=== PATIENT | female | born 1980 | race Caucasian/White ===

== ENCOUNTER 2017-01-29 17:24 | Emergency (ER) | payer MEDICAID, OTHER ==
[~2017-01-29] VITALS: Wt 61.4 kg
[2017-01-29] MEDS ORDERED: ACETAMINOPHEN 325 MG TAB PO STA (19:08)
--- NOTE | 2017-01-29 19:08 | ERD ---
ER Documentation Chief Complaint Chief Complaint vag bleed, discharge, 11 wks preg HPI This 36-year-old, , 11 week female with pelvic pain and cramping, yellow watery d/c, and brown d/c once on TP. denies back pain or dysuria ROS All systems reviewed and are negative except as per history of present illness. PMhx/Soc Medical and Surgical Hx: pt denies Medical Hx, pt denies Surgical Hx Hx Alcohol Use: No Hx Substance Use: No Smoking Status: Never smoker Physical Exam Vitals Vital Signs Date Time Temp Pulse Resp B/P Pulse Ox O2 Delivery O2 Flow Rate FiO2 01/29/17 17:40 98.0 80 20 108/61 98 Vitals stable, triage notes reviewed Physical Exam Const: Well-nourished, well-appearing, well-hydrated 36-year-old female in no acute distress Head: Eyes: ENT: Neck: Resp: Rations even and unlabored, no respiratory distress Cardio: Abd: Soft, symmetric, no bladder tenderness, no CVA tenderness Skin: Back: No midline or flank tenderness Ext: No cyanosis, or edema Neur: Awake and alert Psych: Normal Mood and Affect Result Diagram: 01/29/171924 Results 24 hrs Laboratory Tests Test 01/29/17 19:25 White Blood Count 7.910^3/ul Red Blood Count 3.9310^6/ul Hemoglobin 12.3g/dl Hematocrit 35.6% Mean Corpuscular Volume 90.6fl Mean Corpuscular Hemoglobin 31.3pg Mean Corpuscular Hemoglobin Concent 34.6g/dl Red Cell Distribution Width 12.2% Platelet Count 74820^3/UL Mean Platelet Volume 9.1fl Neutrophils % 64.1% Lymphocytes % 27.4% Monocytes % 6.3% Eosinophils % 1.6% Basophils % 0.3% Nucleated Red Blood Cells % 0.0/100WBC Neutrophils # 5.110^3/ul Lymphocytes # 2.210^3/ul Monocytes # 0.510^3/ul Eosinophils # 0.110^3/ul Basophils # 0.010^3/ul Nucleated Red Blood Cells # 0.010^3/ul Urine Color YELLOW Urine Clarity CLEAR Urine pH 5.0 Urine Specific [place] 1.019 Urine Ketones NEGATIVEmg/dL Urine Nitrite NEGATIVEmg/dL Urine Bilirubin NEGATIVEmg/dL Urine Urobilinogen NEGATIVEmg/dL Urine Leukocyte Esterase NEGATIVELeu/ul Urine Microscopic RBC 6/HPF Urine Microscopic WBC 3/HPF Urine Squamous Epithelial Cells FEW/HPF Urine Calcium Oxalate Crystals FEW/HPF Urine Bacteria FEW/HPF Urine Hemoglobin 2+mg/dL Urine Glucose NEGATIVEmg/dL Urine Total Protein NEGATIVEmg/dl Beta HCG, Quantitative 4501.3mIU/ml Current Medications Medications (Trade) Dose Ordered Sig/Juan Antonio Route PRN Reason Start Time Stop Time Status Last Admin Dose Admin Acetaminophen (Tylenol Tab) 650 mg ONCE STAT PO 01/29/17 19:08 01/29/17 19:11 DC 01/29/17 19:24 Interpretation text CBC shows no evidence of hemorrhage or infection Beta hCG 4501.3. This is a low finding for 11 weeks gestation. ABO-RH : -A positive Procedures/MDM CLINICAL INDICATION: 36-year of age, female. Vaginal bleeding. TECHNIQUE: Real-time sonographic images of the pelvis were obtained transabdominally and transvaginally utilizing sims scale, color, and Doppler imaging. COMPARISON: None available. FINDINGS: Clinical MIMI: August 16, 2017 EGA by clinical MIMI: 11 weeks 4 days Uterus: Anteverted . Gestational sac: There is an intrauterine with an intrauterine gestational sac and embryo. Mean sac diameter measures 2.6 cm, compatible with an average ultrasound age of 7 weeks 4 days . Embryo: [place]-rump length measures 1.4 cm , compatible with an average ultrasound age of 7 weeks 5 days . Yolk sac: Not visualized Embryonic heart rate: Not visualized Cervix: Closed. Right ovary: Size: 4.5 x 2.4 x 2.6 cm. (Vol 15.2 mL) Appearance: Normal morphology. 1.9 cm echogenic corpus luteum. Arterial flow is present. Left ovary: Not visualized Other: No free fluid. IMPRESSION: Failed intrauterine . There is an intrauterine with an intrauterine gestational sac and embryo without embryonic cardiac activity. Electronically viewed and signed by Sandy Hay, Physician on 01/29/2017 21: 03 This 36-year-old female presents to emergency department with her for evaluation of pelvic pain and cramping, watery discharge, patient is 11 weeks , . Denies any vaginal bleeding, emergency room course includes history and physical exam, laboratory diagnostic testing negative for infection or hemorrhage, beta hCG quantitative 4501.3 this is abnormally low for 11 weeks gestation, urinalysis negative for evidence of leukocytosis, nitrates, positive for hematuria. OB ultrasound with radiology impression of failed intrauterine . There is an intrauterine with an intrauterine gestational sac and embryo without embryonic cardiac activity. On-call laborist called to discuss, patient is starting to miscarriage. 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 Patient is stable with no new complaints during ER course, clinically there is no current evidence to topic , acute abdomen, nephritis, acute coronary syndromes, pulmonary embolism or any other emergent condition appearing to require further evaluation or hospitalization. I feel the patient is stable for discharge at this time. I have discussed results, examination findings, the treatment plan with the patient and family present prior to discharge. Indications for emergent reevaluation, side effects of medication were also discussed. All questions were answered. Patient verbalizes understanding and agrees with plan of care. Departure Diagnosis: Primary Impression: Threatened miscarriage in early Condition: Good Patient Instructions: Miscarriage Additional Instructions: Thank you for for coming to [facility] for your care today. Please ask your nurse or provider if you have questions about your care today and do not leave until all your questions have been answered. Please use any medications given as directed and follow-up with your doctor (or the doctor you were referred to) in the next 2-3 days. If you do not have a primary care doctor you may follow up at the [facility] [place] (listed below). You may also use motrin and tylenol as needed for fever and/or pain unless instructed otherwise by your provider or nurse. Indications for more urgent follow-up have been discussed, but you may return to the Emergency Department at ANY time for any worrisome or worsening symptoms. If you have abdominal pain, please know that no test or exam you received is perfect and you should follow up within 8 hours for continued pain. If you had any imaging studies today, such as an X-Ray or CT Scan, these studies will be reviewed later by a radiologist. You will be called if there are important findings that were not identified today, so make sure the contact information you provided at registration is correct. If you received any narcotic pain control medicine today, such as Vicodin, Morphine or Dilaudid, your coordination and judgment may be affected for a number of hours. Please do not drive or operate heavy machinery, and you may want someone to assist you at home. If you were given a prescription for narcotic medication, be aware that it is very addictive- use sparingly and only if necessary. EMILY XIE Jan 29, 2017 19:08
--- NOTE | 2017-01-29 19:08 | ERD ---
ER Documentation Chief Complaint Chief Complaint vag bleed, discharge, 11 wks preg HPI This 36-year-old, , 11 week female with pelvic pain and cramping, yellow watery d/c, and brown d/c once on TP. denies back pain or dysuria ROS All systems reviewed and are negative except as per history of present illness. PMhx/Soc Medical and Surgical Hx: pt denies Medical Hx, pt denies Surgical Hx Hx Alcohol Use: No Hx Substance Use: No Smoking Status: Never smoker Physical Exam Vitals Vital Signs Date Time Temp Pulse Resp B/P Pulse Ox O2 Delivery O2 Flow Rate FiO2 01/29/17 17:40 98.0 80 20 108/61 98 Vitals stable, triage notes reviewed Physical Exam Const: Well-nourished, well-appearing, well-hydrated 36-year-old female in no acute distress Head: Eyes: ENT: Neck: Resp: Rations even and unlabored, no respiratory distress Cardio: Abd: Soft, symmetric, no bladder tenderness, no CVA tenderness Skin: Back: No midline or flank tenderness Ext: No cyanosis, or edema Neur: Awake and alert Psych: Normal Mood and Affect Result Diagram: 01/29/171924 Results 24 hrs Laboratory Tests Test 01/29/17 19:25 White Blood Count 7.910^3/ul Red Blood Count 3.9310^6/ul Hemoglobin 12.3g/dl Hematocrit 35.6% Mean Corpuscular Volume 90.6fl Mean Corpuscular Hemoglobin 31.3pg Mean Corpuscular Hemoglobin Concent 34.6g/dl Red Cell Distribution Width 12.2% Platelet Count 02958^3/UL Mean Platelet Volume 9.1fl Neutrophils % 64.1% Lymphocytes % 27.4% Monocytes % 6.3% Eosinophils % 1.6% Basophils % 0.3% Nucleated Red Blood Cells % 0.0/100WBC Neutrophils # 5.110^3/ul Lymphocytes # 2.210^3/ul Monocytes # 0.510^3/ul Eosinophils # 0.110^3/ul Basophils # 0.010^3/ul Nucleated Red Blood Cells # 0.010^3/ul Urine Color YELLOW Urine Clarity CLEAR Urine pH 5.0 Urine Specific [place] 1.019 Urine Ketones NEGATIVEmg/dL Urine Nitrite NEGATIVEmg/dL Urine Bilirubin NEGATIVEmg/dL Urine Urobilinogen NEGATIVEmg/dL Urine Leukocyte Esterase NEGATIVELeu/ul Urine Microscopic RBC 6/HPF Urine Microscopic WBC 3/HPF Urine Squamous Epithelial Cells FEW/HPF Urine Calcium Oxalate Crystals FEW/HPF Urine Bacteria FEW/HPF Urine Hemoglobin 2+mg/dL Urine Glucose NEGATIVEmg/dL Urine Total Protein NEGATIVEmg/dl Beta HCG, Quantitative 4501.3mIU/ml Current Medications Medications (Trade) Dose Ordered Sig/Juan Antonio Route PRN Reason Start Time Stop Time Status Last Admin Dose Admin Acetaminophen (Tylenol Tab) 650 mg ONCE STAT PO 01/29/17 19:08 01/29/17 19:11 DC 01/29/17 19:24 Interpretation text CBC shows no evidence of hemorrhage or infection Beta hCG 4501.3. This is a low finding for 11 weeks gestation. ABO-RH : -A positive Procedures/MDM CLINICAL INDICATION: 36-year of age, female. Vaginal bleeding. TECHNIQUE: Real-time sonographic images of the pelvis were obtained transabdominally and transvaginally utilizing sims scale, color, and Doppler imaging. COMPARISON: None available. FINDINGS: Clinical MIMI: August 16, 2017 EGA by clinical MIMI: 11 weeks 4 days Uterus: Anteverted . Gestational sac: There is an intrauterine with an intrauterine gestational sac and embryo. Mean sac diameter measures 2.6 cm, compatible with an average ultrasound age of 7 weeks 4 days . Embryo: [place]-rump length measures 1.4 cm , compatible with an average ultrasound age of 7 weeks 5 days . Yolk sac: Not visualized Embryonic heart rate: Not visualized Cervix: Closed. Right ovary: Size: 4.5 x 2.4 x 2.6 cm. (Vol 15.2 mL) Appearance: Normal morphology. 1.9 cm echogenic corpus luteum. Arterial flow is present. Left ovary: Not visualized Other: No free fluid. IMPRESSION: Failed intrauterine . There is an intrauterine with an intrauterine gestational sac and embryo without embryonic cardiac activity. Electronically viewed and signed by Sandy Hay, Physician on 01/29/2017 21: 03 This 36-year-old female presents to emergency department with her for evaluation of pelvic pain and cramping, watery discharge, patient is 11 weeks , . Denies any vaginal bleeding, emergency room course includes history and physical exam, laboratory diagnostic testing negative for infection or hemorrhage, beta hCG quantitative 4501.3 this is abnormally low for 11 weeks gestation, urinalysis negative for evidence of leukocytosis, nitrates, positive for hematuria. OB ultrasound with radiology impression of failed intrauterine . There is an intrauterine with an intrauterine gestational sac and embryo without embryonic cardiac activity. On-call laborist called to discuss, patient is starting to miscarriage. 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 Patient is stable with no new complaints during ER course, clinically there is no current evidence to topic , acute abdomen, nephritis, acute coronary syndromes, pulmonary embolism or any other emergent condition appearing to require further evaluation or hospitalization. I feel the patient is stable for discharge at this time. I have discussed results, examination findings, the treatment plan with the patient and family present prior to discharge. Indications for emergent reevaluation, side effects of medication were also discussed. All questions were answered. Patient verbalizes understanding and agrees with plan of care. Departure Diagnosis: Primary Impression: Threatened miscarriage in early Condition: Good Patient Instructions: Miscarriage Additional Instructions: Thank you for for coming to [facility] for your care today. Please ask your nurse or provider if you have questions about your care today and do not leave until all your questions have been answered. Please use any medications given as directed and follow-up with your doctor (or the doctor you were referred to) in the next 2-3 days. If you do not have a primary care doctor you may follow up at the [facility] - [place] (listed below). You may also use motrin and tylenol as needed for fever and/or pain unless instructed otherwise by your provider or nurse. Indications for more urgent follow-up have been discussed, but you may return to the Emergency Department at ANY time for any worrisome or worsening symptoms. If you have abdominal pain, please know that no test or exam you received is perfect and you should follow up within 8 hours for continued pain. If you had any imaging studies today, such as an X-Ray or CT Scan, these studies will be reviewed later by a radiologist. You will be called if there are important findings that were not identified today, so make sure the contact information you provided at registration is correct. If you received any narcotic pain control medicine today, such as Vicodin, Morphine or Dilaudid, your coordination and judgment may be affected for a number of hours. Please do not drive or operate heavy machinery, and you may want someone to assist you at home. If you were given a prescription for narcotic medication, be aware that it is very addictive- use sparingly and only if necessary. EMILY XIE Jan 29, 2017 19:08
--- NOTE | 2017-01-29 21:03 | RADRPT ---
PROCEDURE: FIRST TRIMESTER OBSTETRICAL ULTRASOUND: CLINICAL INDICATION: 36-year of age, female. Vaginal bleeding. TECHNIQUE: Real-time sonographic images of the pelvis were obtained transabdominally and transvagina lly utilizing sims scale, color, and Doppler imaging. COMPARISON: None available. FINDINGS: Clinical MIMI: August 16, 2017 EGA by clinical MIMI: 11 weeks 4 days Uterus: Anteverted . Gestational sac: There is an intrauterine with an intrauterine gestational sac and embryo. Mean sac diameter measures 2.6 cm, compatible with an average ultrasound age of 7 weeks 4 days . Embryo: [place]-rump length measures 1.4 cm , compatible with an average ultrasound age of 7 weeks 5 days . Yolk sac: Not visualized Embryonic heart rate: Not visualized Cervix: Closed. Right ovary: Size: 4.5 x 2.4 x 2.6 cm. (Vol 15.2 mL) Appearance: Normal morphology. 1.9 cm echogenic corpus luteum. Arterial flow is present. Left ovary: Not visualized Other: No free fluid. IMPRESSION: Failed intrauterine . There is an intrauterine with an intrauterine gestational s ac and embryo without embryonic cardiac activity. RPTAT: HCTS Physician Marianne Date Time Electronically viewed and signed by Physician Marianne on 01/29/2017 21:03 CS/
[2017-01-29] MEDS ORDERED: HYDR-906 PO (21:36)
[2017-01-29 21:45] VITALS: BP 110/75; PULSE 65; RESP 15; TEMP 98
[2017-02-02] MEDS ORDERED: SOD CHLORIDE 0.9% 1,000 ML IV STA (00:54)
== END 2017-01-29 21:45 | disposition home or self-care (01) ==
LOC: FTE 17:24
DX: O03.9 Complete or unspecified spontaneous abortion without complication (principal); R10.2 Pelvic and perineal pain
CPT/HCPCS: 36415; 76801; 81001; 84702; 85025; 86900; 86901; Z7502; Z7610

== ENCOUNTER 2017-02-01 20:49 | Emergency (ER) | payer MEDICAID ==
[~2017-02-01] VITALS: Ht 157.5 cm; Wt 61.5 kg
[~2017-02-01 20:49] MED LIST: HYDR-906 PO
[2017-02-01 21:16] VITALS: Ht 157.5 cm; Wt 61.5 kg
[2017-02-02] MEDS ORDERED: SOD CHLORIDE 0.9% 1,000 ML IV STA (01:02)
--- NOTE | 2017-02-02 01:29 | ERD ---
ER Documentation Chief Complaint Chief Complaint vag bleed and pelvic pain, pt w/known miscarriage. Not taking rx meds HPI 36-year-old female presents here to emergency department for complaints of vaginal bleeding and pelvic pain, patient was seen here 3 days ago, was diagnosed to have failed and miscarriage, patient was supposed to be 12 weeks today, patient has a 7 week failure in her pelvic area, was bleeding before, no bleeding got worse. Patient is complaining of pain pelvic pain, cramping pain, 6/10 scale, not better or worse with anything. Patient denies any fever chills. ROS All systems reviewed and are negative except as per history of present illness. Medications Home Meds Active Scripts Hydrocodone/Acetaminophen ([place] 5-325 Tablet) 1 Each Tablet, 1 TAB PO Q6H Y for PAIN, #7 TAB Prov:ANNE-MARIE,EMILY 01/29/17 Allergies Allergies: Coded Allergies: No Known Allergy (Unverified , 02/01/17) PMhx/Soc Medical and Surgical Hx: pt denies Medical Hx, pt denies Surgical Hx History of Surgery: No Anesthesia Reaction: No Hx Neurological Disorder: No Hx Respiratory Disorders: No Hx Cardiac Disorders: No Hx Psychiatric Problems: No Hx Miscellaneous Medical Probl: No Hx Alcohol Use: No Hx Substance Use: No Hx Tobacco Use: No Smoking Status: Never smoker FmHx Family History: No coronary disease, No diabetes, No other Physical Exam Vitals Vital Signs Date Time Temp Pulse Resp B/P Pulse Ox O2 Delivery O2 Flow Rate FiO2 02/01/17 21:16 98.9 77 20 133/68 99 Physical Exam GENERAL: The patient is well developed and appropriate for usual state of health, in no apparent distress. CHEST: Clear to auscultation bilaterally. There are no rales, wheezes or rhonchi. HEART: Regular rate and rhythm. No murmurs, clicks, rubs or gallops. No S3 or S4. ABDOMEN: Soft, nontender and nondistended. Good bowel sounds. No rebound or guarding. No gross peritonitis. No gross organomegaly or masses. No Hahn sign or McBurney point tenderness. BACK: No midline or flank tenderness. EXTREMITIES: Equal pulses bilaterally. There is no peripheral clubbing, cyanosis or edema. No focal swelling or erythema. Full range of motion. Grossly neurovascularly intact. NEURO: Alert and oriented. Cranial nerves 2-12 intact. Motor strength in all 4 extremities with 5/5 strength. Sensation grossly intact. Normal speech and gait. SKIN: There is no apparent rash or petechia. The skin is warm and dry. HEMATOLOGIC AND LYMPHATIC: There is no evidence of excessive bruising or lymphedema. No gross cervical, axillary, or inguinal lymphadenopathy. VAGINAL: Moderate amount of blood in the vaginal vault, cervical loss is closed. No cervical motion tenderness or adnexal tenderness noted. Results 24 hrs Current Medications Medications (Trade) Dose Ordered Sig/Juan Antonio Route PRN Reason Start Time Stop Time Status Last Admin Dose Admin Sodium Chloride (NS) 1,000 ml @ 1,000 mls/hr Q1H STAT IV 02/02/17 01:02 02/02/17 02:01 DC 02/02/17 01:13 Ketorolac Tromethamine (Toradol) 30 mg ONCE STAT IV 02/02/17 04:21 02/02/17 04:22 UNV Normal saline IV bolus was given here in emergency department for rehydration, patient tolerated IV fluids. Patient was given medication for pain here in emergency department, after treatment, patient verbalized feeling much better. Patient's pain is improved. CBC was done, WBC: 12.7, hemoglobin 12.8 hematocrit 37.7 platelets 243. Beta-hCG quantitative. 2261 Urinalysis +RBC, neg leuks and nitrites PROCEDURE: US Pelvis. CLINICAL INDICATION: Vaginal Bleed () TECHNIQUE: Multiple sonographic images of the pelvis were obtained utilizing a transabdominal and endovaginal technique. The images were reviewed on a PACS workstation. COMPARISON: US PELVIS 01/29/2017 FINDINGS: The uterus is visualized and measures 8.3 x 3.9 x 5.3 cm. The intrauterine is no longer seen. The endometrial echo complex is thickened and hyperechoic, measuring 2.2 cm. No vascularity is demonstrated. The cervix is closed. There is a small amount of free fluid. The right ovary has a normal echotexture and measures 3.1 x 3.0 x 2.9 cm. There is a 1.3 cm right ovarian cyst. Doppler flow is demonstrated in the right ovary. The left ovary is not visualized. No adnexal mass is seen. IMPRESSION: Miscarriage. Markedly thickened endometrium, likely hematoma. Products of conception is not excluded. Left ovary not visualized. Physician Mehdi Date Time Electronically viewed and signed by Norma Sorto Physician on 02/02/2017 04: 09 CS/ CC: ATUL GRUBBS NP Procedures/MDM Medical Decision Making: Symptoms of vaginal bleeding most likely is consistent with spontaneous miscarriage. The previously visualized gestational sac is not visualized anymore. Hemoglobin be stable at this time. Beta-hCG quantitative is very low. There is no signs of symptoms of dehydration. There is low suspicion for sepsis. Patient appears well and is hemodynamically stable. Disposition: Home. Condition: Stable Rx; Ibuprofen [place] Instructions: Patient is advised to do bed rest, avoid heavy lifting, and avoid having sex until cleared by OB doctor. Patient is advised to follow up with OB doctor or here at the ER in 48 hours for reevaluation of symptoms, repeat beta HCG quantitative and ultrasound. Patient is advised that is symptoms are worst, severe bleeding, dizziness, severe abdominal pain, fever, worst signs and symptoms to return to the emergency department immediately. Disclaimer: Inadvertent spelling and grammatical errors are likely due to EHR/ dictation software use and do not reflect on the overall quality of patient care. Also, please note that the electronic time recorded on this note does not necessarily reflect the actual time of the patient encounter. Departure Diagnosis: Primary Impression: Spontaneous Condition: Stable Patient Instructions: Miscarriage, Spontaneous (Completed) Additional Instructions: Patient is advised to do bed rest, avoid heavy lifting, and avoid having sex until cleared by OB doctor. Patient is advised to follow up with OB doctor or here at the ER in 48 hours for reevaluation of symptoms, repeat beta HCG quantitative and ultrasound. Patient is advised that is symptoms are worst, severe bleeding, dizziness, severe abdominal pain, fever, worst signs and symptoms to return to the emergency department immediately. ATUL GRUBBS NP Feb 02, 2017 01:29
--- NOTE | 2017-02-02 04:10 | RADRPT ---
PROCEDURE: US Pelvis. CLINICAL INDICATION: Vaginal Bleed () TECHNIQUE: Multiple sonographic images of the pelvis were obtained utilizing a transabdominal and endovaginal technique. The images were reviewed on a PACS workstation. COMPARISON: US PELVIS 01/29/2017 FINDINGS: The uterus is visualized and measures 8.3 x 3.9 x 5.3 cm. The intrauterine is no longer se en. The endometrial echo complex is thickened and hyperechoic, measuring 2.2 cm. No vascularity is d emonstrated. The cervix is closed. There is a small amount of free fluid. The right ovary has a norm al echotexture and measures 3.1 x 3.0 x 2.9 cm. There is a 1.3 cm right ovarian cyst. Doppler flow i s demonstrated in the right ovary. The left ovary is not visualized. No adnexal mass is seen. IMPRESSION: Miscarriage. Markedly thickened endometrium, likely hematoma. Products of conception is not excluded . Left ovary not visualized. Physician Mehdi Date Time Electronically viewed and signed by Physician Mehdi on 02/02/2017 04:09 CS/
[2017-02-02] MEDS ORDERED: KETOROLAC 30 MG INJ IV STA (04:21)
[2017-02-02] MEDS ORDERED: IBUP800T25 PO (04:33)
[2017-02-02] MEDS ORDERED: HYDR-906 PO (04:33)
== END 2017-02-02 04:48 | disposition home or self-care (01) ==
LOC: FTE 20:49
DX: O03.9 Complete or unspecified spontaneous abortion without complication (principal)
CPT/HCPCS: 36415; 76801; 76817; 81001; 84702; 85025; 96374; J1885; J7030; Z7502